=== PATIENT | female | born 1955 ===

== ENCOUNTER 2017-07-03 08:24 | Day surgery (SDC) | payer MEDICARE ==
[2015-08-24 13:05] VITALS: BMI 27.3
[2017-07-03] MEDS ORDERED: Lactated Ringer's 1,000 ML IV ONE (09:41)
[2017-07-03] MEDS ORDERED: Midazolam 2 MG/2 ML VIAL ONE (09:53)
[2017-07-03] MEDS ORDERED: Propofol 10 mg/ml Inj (20 ML) ONE (09:54)
[2017-07-03 11:28] VITALS: TEMP 97
[2017-07-03 11:40] VITALS: BP 106/67; PULSE 75; RESP 24; O2SAT 99
== END 2017-07-03 11:57 | disposition home or self-care (01) ==
LOC: H.ENDO 08:24
PROVIDERS: ATTEND Internal Medicine Gastroenterology
DX: Z12.11 Encounter for screening for malignant neoplasm of colon (principal); Z83.71 Family history of colonic polyps; K64.8 Other hemorrhoids; K57.30 Diverticulosis of large intestine without perforation or abscess without bleeding; K30 Functional dyspepsia; K29.50 Unspecified chronic gastritis without bleeding
CPT/HCPCS: 43239; 45378; 88305; 88342; J2250; J2704; J7120

== ENCOUNTER 2017-07-09 01:01 | Emergency (ER) | payer MEDICARE ==
[2017-07-09 01:01] VITALS: BMI 27.3
[2017-07-09 01:12] VITALS: BP 137/77; PULSE 74; RESP 18; TEMP 98.5; O2SAT 96
[2017-07-09] MEDS ORDERED: Sodium Chloride 0.9% 1,000 ML IV STA (01:30)
--- NOTE | 2017-07-09 01:46 | ED PDOC ---
HPI: Abdomen Time Seen by Provider: 07/09/17 01:24 Chief Complaint (Nursing): Abdominal Pain Chief Complaint (Provider): abdominal pain History Per: Patient History/Exam Limitations: no limitations Onset/Duration Of Symptoms: Days (1) Current Symptoms Are (Timing): Still Present Location Of Pain/Discomfort: LLQ, Other (left flank) Associated Symptoms: Nausea, Vomiting Additional History Per: Patient Additional Complaint(s): 61 y/o female history of breast CA presents with left flank pain x 1 day. Assoicated nausea, vomiting x 1. Denies fever, chest pain, shortness of breath , palpitations, changes in bowel movements, urinary symptoms. Past Medical History Reviewed: Historical Data, Nursing Documentation, Vital Signs Vital Signs: Last Vital Signs Temp 98.5 F 07/09/17 01:10 Pulse 74 07/09/17 01:10 Resp 18 07/09/17 01:10 BP 137/77 07/09/17 01:10 Pulse Ox 96 07/09/17 02:52 - Medical History PMH: HTN, Malignancy (history of breast malignancy) Denies: Chronic Kidney Disease - Surgical History Surgical History: - Family History Family History: States: No Known Family Hx - Home Medications Home Medications: Ambulatory Orders Medication Instructions Recorded Anastrozole 1 mg PO DAILY 08/24/15 Ascorbate Calcium [Calcium 1,200 mg PO DAILY 08/24/15 Ascorbate] Multivitamin/Iron/Folic Acid 1 tab PO DAILY 08/24/15 [Centrum Complete Multivit Tab] Naproxen [Naprosyn] 500 mg PO DAILY 07/03/17 amLODIPine [Norvasc] 5 mg PO DAILY 07/03/17 Naproxen [Naprosyn] 500 mg PO Q12 PRN #20 tablet 07/09/17 Ondansetron ODT [Zofran ODT] 4 mg PO Q8 PRN #10 odt 07/09/17 Tamsulosin [Flomax] 0.4 mg PO DAILY #10 cap 07/09/17 oxyCODONE/Acetaminophen [Percocet 1 ea PO Q6 PRN #12 tab 07/09/17 5/325 mg Tab] - Allergies Allergies/Adverse Reactions: Allergies Allergy/AdvReac Type Severity Reaction Status Date / Time No Known Allergies Allergy Verified 02/21/15 21:48 Review of Systems ROS Statement: Except As Marked, All Systems Reviewed And Found Negative Gastrointestinal: Positive for: Abdominal Pain Musculoskeletal: Positive for: Back Pain Physical Exam - Reviewed Nursing Documentation Reviewed: Yes Vital Signs Reviewed: Yes - Physical Exam Appears: Positive for: Well, Non-toxic, Uncomfortable Head Exam: Positive for: ATRAUMATIC, NORMAL INSPECTION, NORMOCEPHALIC Skin: Positive for: Normal Color Eye Exam: Positive for: Normal appearance ENT: Positive for: Normal ENT Inspection Cardiovascular/Chest: Positive for: Regular Rate, Rhythm Respiratory: Positive for: Normal Breath Sounds Gastrointestinal/Abdominal: Positive for: Bowel Sounds, Soft, Tenderness (left flank) Back: Positive for: L CVA Tenderness Extremity: Positive for: Normal ROM Neurologic/Psych: Positive for: Alert, Oriented - Laboratory Results Result Diagrams: 07/09/17 01:54 07/09/17 01:54 - ECG O2 Sat by Pulse Oximetry: 96 - Progress ED Course And Treament: labs, urine, IV fluids, IV toradol, IV zofran EXAM: CT Abdomen and Pelvis Without Intravenous Contrast EXAM DATE/TIME: Exam ordered 07/09/2017 1:39 AM CLINICAL HISTORY: 61 years old, female; Pain; Abdominal pain; Flank; Left; Prior surgery; Surgery date: 6+ months; Surgery type: ; Additional info: Left flank pain TECHNIQUE: Axial computed tomography images of the abdomen and pelvis without intravenous contrast. All CT scans at this facility use one or more dose reduction techniques, viz.: automated exposure control; ma/kV adjustment per patient size (including targeted exams where dose is matched to indication; i.e. head); or iterative reconstruction technique. Coronal and sagittal reformatted images were created and reviewed. COMPARISON: CT ABD AND PELV W/CONTRAST 2013-12-01 08:07 FINDINGS: Lower thorax: There is subpleural atelectasis of the dependent portions of the lungs. Patient is post LEFT mastectomy. ABDOMEN: Liver: There is a diffuse decrease in hepatic parenchymal density, consistent with fatty infiltration. Gallbladder and bile ducts: Normal. No calcified stones. No ductal dilation. Pancreas: The pancreas is normal. No ductal dilation. Spleen: The spleen is normal. Adrenals: The right adrenal gland is normal. There is a focal hypodense mass in the left adrenal gland, consistent in appearance and density with a benign adrenal adenoma. Kidneys and ureters: There is a 6 x 6 x 7 mm mid LEFT ureteral obstructing calculus with associated moderate LEFT hydroureteronephrosis. The right kidney is normal. Stomach and bowel: The stomach is normal. The duodenum is unremarkable. The colon is normal. There is no evidence of intestinal perforation or obstruction. No mucosal thickening. Appendix: A normal appendix is identified. PELVIS: Bladder: The bladder is normal. No stones. Reproductive: There is uterus calcification possibly representing fibroids. ABDOMEN and PELVIS: Intraperitoneal space: Normal. No free air. No significant fluid collection. Bones/joints: No acute fracture. No dislocation. Soft tissues: See above. Vasculature: Normal. No abdominal aortic aneurysm. Lymph nodes: Normal. No enlarged lymph nodes. IMPRESSION: 1. There is a 6 x 6 x 7 mm mid LEFT ureteral obstructing calculus with associated moderate LEFT hydroureteronephrosis. 2. Hepatic steatosis. On re-eval, patient resting comfortably; states pain resolved. Patient educated on findings, discharged with rx Flomax (dose given in ED), Zofran, Percocet, naproxen. Strainer given with instructions on use. Advised Urology follow up. Fluids. Return precautions given. Disposition - Clinical Impression Clinical Impression: Kidney stone on left side - Patient ED Disposition Is Patient to be Admitted: No Counseled Patient/Family Regarding: Studies Performed, Diagnosis, Need For Followup, Rx Given - Disposition Referrals: Checo Sy MD [Primary Care Provider] - Shahram Alexis Jr., MD [Staff Provider] - Disposition: Routine/Home Disposition Time: 02:51 Condition: IMPROVED Prescriptions: Naproxen [Naprosyn] 500 mg PO Q12 PRN #20 tablet PRN Reason: Pain, Moderate (4-7) Ondansetron ODT [Zofran ODT] 4 mg PO Q8 PRN #10 odt PRN Reason: Nausea/Vomiting oxyCODONE/Acetaminophen [Percocet 5/325 mg Tab] 1 ea PO Q6 PRN #12 tab PRN Reason: Pain, Severe (8-10) Tamsulosin [Flomax] 0.4 mg PO DAILY #10 cap Instructions: Kidney Stones (ED), Renal Colic (ED), How to Strain Your Urine ( ED) Forms: [employer] (Tajik) Print Language: ARMENIAN
[2017-07-09 02:00] LABS: BASO # 0.1 K/uL (0.0-0.2); BASO % 0.6 % (0.0-2.0); EOS # 0.4 K/uL (0.0-0.7); HEMOGLOBIN 13.1 g/dL (12.0-16.0); LYMPH # 2.5 K/uL (1.0-4.3); LYMPH % 25.1 % (20.0-40.0); MEAN CELL VOLUME 92.2 fl (81.0-99.0); MEAN CORPUSCULAR HEMOGLOBIN 31.3 pg (27.0-31.0); MEAN CORPUSCULAR HGB CONC 33.9 g/dL (33.0-37.0); MEAN PLATELET VOLUME 8.3 fl (7.2-11.7); MONO # 0.7 K/uL (0.0-0.8); MONO % 6.8 % (0.0-10.0); NEUT # 6.3 K/uL (1.8-7.0); NEUT % 63.5 % (50.0-75.0); NRBC % 0.1 % (0.0-0.0); RBC 4.17 Mil/uL (3.80-5.20); RED CELL DISTRIBUTION WIDTH 14.2 % (11.5-14.5); WHITE BLOOD COUNT 9.9 K/uL (4.8-10.8)
[2017-07-09 02:02] LABS: URINE BILIRUBIN NEGATIVE (NEGATIVE); URINE BLOOD LARGE (NEGATIVE); URINE CLARITY SLIGHTY-CLOUDY (Clear); URINE COLOR YELLOW (YELLOW); URINE GLUCOSE (UA) NEG (Normal); URINE LEUKOCYTE ESTERASE NEG Leu/uL (Negative); URINE NITRATE NEGATIVE (NEGATIVE); URINE PROTEIN NEGATIVE (NEGATIVE); URINE UROBILINOGEN 0.2-1.0 mg/dL (0.2-1.0)
[2017-07-09 02:09] LABS: ALB/GLOB RATIO 1.2 (1.0-2.1); ALBUMIN 4.1 g/dL (3.5-5.0); ALT/SGPT 39 U/L (9-52); AST/SGOT 26 U/L (14-36); BLOOD UREA NITROGEN 16 mg/dl (7-17); CALCIUM 9.6 mg/dL (8.4-10.2); GFR AFRICAN-AMERICAN > 60; GFR NON-AFRICAN AMERICAN > 60
--- NOTE | 2017-07-09 10:39 | CT ---
PROCEDURE: CT Abdomen and Pelvis without intravenous contrast HISTORY: left flank pain COMPARISON: 12/01/2013 TECHNIQUE: Technique. Contrast Dose: None Radiation dose: Total exam DLP = 502 mGy-cm. This CT exam was performed using one or more of the following dose reduction techniques: Automated exposure control, adjustment of the mA and/or kV according to patient size, and/or use of iterative reconstruction technique. FINDINGS: LOWER THORAX: Left postmastectomy changes. Prominent heart no pericardial effusion. Coronary artery calcifications noted LIVER: Diffuse fatty infiltration suggested slightly more pronounced. Bordering the superior and left lateral (and to a lesser extent the right lateral) aspect of the gallbladder there is coalescing hyperdensity - this is slightly more conspicuous compared to the prior study fatty sparing here is compatible with this. No gross dilated ducts seen GALLBLADDER AND BILE DUCTS: Unremarkable. PANCREAS: Unremarkable. No gross lesion or ductal dilatation. SPLEEN: Unremarkable. ADRENALS: The approximately 2 cm low-density left adrenal mass is similar-appearing compatible with a benign left adrenal adenoma. Right adrenal gland unremarkable KIDNEYS AND URETERS: A 6-7 mm obstructing left ureteral calculus at the approximate L3 vertebral body is noted. Proximal to it left hydro ureteral left hydronephrosis especially left extra renal pelviectasis is noted. No obstructing renal calculi noted. Sub mm renal calculi not excluded. VASCULATURE: Unremarkable. No aortic aneurysm. BOWEL: Unremarkable. No obstruction. No gross mural thickening. APPENDIX: Unremarkable. Normal appendix. PERITONEUM: Unremarkable. No free fluid. No free air. LYMPH NODES: Unremarkable. No enlarged lymph nodes. BLADDER: Unremarkable. REPRODUCTIVE: Uterine calcifications compatible with fibroid changes BONES: Mild thoracic and lumbar level spondylosis. Minimal anterior subluxation L4 on L5 prominent posterior disc bulging margin. No spondylolysis. Ligamentous laxity inferred -facet hypertrophic arthrosis. L5-S1 marked disc space narrowing with subchondral sclerosis. OTHER FINDINGS: None. IMPRESSION: 6 to 7 mm obstructing left ureteral calculus - approximate left L3 vertebral body level. Proximal left hydroureter and left hydronephrosis. Approximately 2 cm left adrenal adenoma-stable appearing. Progressive hepatic steatosis with probable fatty sparing areas surrounding the gallbladder Status post left mastectomy Comments: Preliminary report per Vrad compatible with this report.
== END 2017-07-09 04:15 | disposition home or self-care (01) ==
LOC: H.ER 01:01
DX: N20.0 Calculus of kidney (principal); I10 Essential (primary) hypertension; K76.0 Fatty (change of) liver, not elsewhere classified; Z85.3 Personal history of malignant neoplasm of breast; Z90.12 Acquired absence of left breast and nipple
CPT/HCPCS: 74176; 80053; 81003; 85025; 87086; 96361; 96374; 96375; 96376; 99282; J1170; J1885; J2405; J7040

== ENCOUNTER 2017-07-25 18:05 | Emergency (ER) | payer MEDICARE ==
[2017-07-25 18:06] VITALS: BMI 27.3
[2017-07-25 18:40] VITALS: BP 132/82; PULSE 79; RESP 20; TEMP 98.2; O2SAT 97
[2017-07-25] MEDS ORDERED: Oxycodone/Acetaminophen 5/325 mg Tab PO STA (19:05)
--- NOTE | 2017-07-25 19:16 | ED PDOC ---
HPI: Trauma/Fall - HPI Time Seen by Provider: 07/25/17 18:59 Chief Complaint (Nursing): Trauma Chief Complaint (Provider): Elbow and shoulder pain, Fall History Per: Patient History/Exam Limitations: no limitations Onset/Duration Of Symptoms: Hrs Additional Complaint(s): 62 year old female presents to the ER for evaluation of injuries after slipping and falling today, down approximately 4 steps. Patient states she landed on her right knee, right elbow and right shoulder. No head trauma, LOC, or dizziness. Now complaining of pain to elbow and shoulder. Took Advil this afternoon with no improvement. PMD: Dr. Checo Sy Past Medical History Reviewed: Historical Data, Nursing Documentation, Vital Signs Vital Signs: Last Vital Signs Temp 98.2 F 07/25/17 18:38 Pulse 79 07/25/17 18:38 Resp 20 07/25/17 18:38 BP 132/82 07/25/17 18:38 Pulse Ox 97 07/25/17 18:38 - Medical History PMH: HTN, Malignancy (history of breast malignancy) Denies: Chronic Kidney Disease - Surgical History Surgical History: - Family History Family History: States: Unknown Family Hx - Home Medications Home Medications: Ambulatory Orders Medication Instructions Recorded Anastrozole 1 mg PO DAILY 08/24/15 Ascorbate Calcium [Calcium 1,200 mg PO DAILY 08/24/15 Ascorbate] Multivitamin/Iron/Folic Acid 1 tab PO DAILY 08/24/15 [Centrum Complete Multivit Tab] Naproxen [Naprosyn] 500 mg PO DAILY 07/03/17 amLODIPine [Norvasc] 5 mg PO DAILY 07/03/17 Naproxen [Naprosyn] 500 mg PO Q12 PRN #20 tablet 07/09/17 Ondansetron ODT [Zofran ODT] 4 mg PO Q8 PRN #10 odt 07/09/17 Tamsulosin [Flomax] 0.4 mg PO DAILY #10 cap 07/09/17 oxyCODONE/Acetaminophen [Percocet 1 ea PO Q6 PRN #12 tab 07/09/17 5/325 mg Tab] Naproxen 375 mg PO Q8 PRN #21 tablet 07/25/17 - Allergies Allergies/Adverse Reactions: Allergies Allergy/AdvReac Type Severity Reaction Status Date / Time No Known Allergies Allergy Verified 02/21/15 21:48 Review of Systems ROS Statement: Except As Marked, All Systems Reviewed And Found Negative Musculoskeletal: Positive for: Shoulder Pain (right), Arm Pain (right elbow) Neurological: Negative for: Headache, Dizziness, Other (LOC) Physical Exam - Reviewed Nursing Documentation Reviewed: Yes Vital Signs Reviewed: Yes - Physical Exam Appears: Positive for: Non-toxic, No Acute Distress Head Exam: Positive for: ATRAUMATIC, NORMAL INSPECTION, NORMOCEPHALIC Skin: Positive for: Normal Color, Warm, Dry Eye Exam: Positive for: EOMI, Normal appearance, PERRL Neck: Positive for: Normal, Painless ROM Cardiovascular/Chest: Positive for: Regular Rate, Rhythm. Negative for: Murmur Respiratory: Positive for: Normal Breath Sounds. Negative for: Accessory Muscle Use, Respiratory Distress Pulses-Radial (L): 2+ Pulses-Radial (R): 2+ Gastrointestinal/Abdominal: Positive for: Normal Exam, Soft. Negative for: Tenderness Extremity: Positive for: Normal ROM, Other (abrasion noted to right knee). Negative for: Tenderness (bony point tenderness), Deformity Neurologic/Psych: Positive for: Alert, Oriented (x3). Negative for: Motor/ Sensory Deficits - ECG O2 Sat by Pulse Oximetry: 97 (RA) Pulse Ox Interpretation: Normal - Progress ED Course And Treament: XRY OF SHOULDER: NEG FX XRY OF ELBOW: NEG FX PLACED IN SHOULDER SLING PERCOCET 5/325 MG X 1 DOSE Medical Decision Making Medical Decision Making: Initial Impression: Fall, Right elbow and shoulder pain Time: 19:05 Initial Plan: --Percocet 1 tab PO --X-Ray Right Elbow --X-Ray Right Shoulder Scribe Attestation: Documented by Lindsay Astorga, acting as a scribe for Mariya Youngblood PA-C Provider Scribe Attestation: All medical record entries made by the Scribe were at my direction and personally dictated by me. I have reviewed the chart and agree that the record accurately reflects my personal performance of the history, physical exam, medical decision making, and the department course for this patient. I have also personally directed, reviewed, and agree with the discharge instructions and disposition. Disposition - Clinical Impression Clinical Impression: Shoulder sprain, Rotator cuff (capsule) sprain - Patient ED Disposition Is Patient to be Admitted: No - Disposition Referrals: Bony Ren MD [Medical Doctor] - Disposition: Routine/Home Disposition Time: 19:37 Condition: STABLE Prescriptions: Naproxen 375 mg PO Q8 PRN #21 tablet PRN Reason: Pain, Moderate (4-7) Instructions: Shoulder Sprain (DC), Rotator Cuff Injury Forms: [facility] ([employer]), [facility] ED School/Work Excuse Print Language: DUTCH
--- NOTE | 2017-07-26 08:47 | RAD ---
PROCEDURE: Radiographs of the Right Shoulder HISTORY: SHOULDER INJURY COMPARISON: No prior. FINDINGS: BONES: Normal. No fracture. JOINTS: Normal. Glenohumeral and acromioclavicular joints preserved. No osteoarthritis. SOFT TISSUES: Normal. OTHER FINDINGS: None. IMPRESSION: Normal radiographs of the right shoulder.
--- NOTE | 2017-07-26 09:01 | RAD ---
PROCEDURE: Right elbow Radiographs. HISTORY: ELBOW INJURY COMPARISON: None. FINDINGS: BONES: Normal. No fracture. JOINTS: Normal. No dislocation. SOFT TISSUES: Normal. OTHER FINDINGS: None. IMPRESSION: Normal right elbow radiographs.
== END 2017-07-25 20:24 | disposition home or self-care (01) ==
LOC: H.ER 18:05
DX: S43.421A Sprain of right rotator cuff capsule, initial encounter (principal); W01.0XXA Fall on same level from slipping, tripping and stumbling without subsequent striking against object, initial encounter; I10 Essential (primary) hypertension; Z85.3 Personal history of malignant neoplasm of breast